=== PATIENT | female | born 1955 | race African-American/Black ===

== ENCOUNTER 2025-08-25 16:39 | Inpatient (IN) | payer OTHER, MEDICARE ==
[~2025-08-25] VITALS: Ht 170.2 cm; Wt 99.8 kg
[2025-08-25] MEDS: IV NS 0.9% 1,000 ML BAG IV ONE (17:12)
[2025-08-25 17:17] LABS: PLATELET COUNT (AUTO) 247 K/uL (150-450); RED BLOOD CELL COUNT(AUTO) 5.28 MIL/uL (4.0-5.2); RED CELL DISTRIBUTION WIDTH 14.6 % (11.5-15.0); WHITE BLOOD COUNT (AUTO) 8.5 K/uL (4.3-11.0)
[2025-08-25 17:24] LABS: CALCIUM, SERUM 9.2 mg/dL (8.5-10.1); CREATININE 1.0 mg/dL (0.6-1.3); SODIUM SERUM 135 mmol/L (136-145); UREA NITROGEN, BLOOD 9 mg/dL (7-18)
[2025-08-25 17:37] LABS: ASPARTATE AMINOTRANSFERASE 24 U/L (15-37); NT-PRO BNP 493 pg/mL (0-125); TOTAL PROTEIN, SERUM 8.2 g/dL (6.4-8.2)
[2025-08-25] MEDS ORDERED: ASPIRIN 325 MG TABLET ONE (17:54)
[2025-08-25] MEDS ORDERED: IOHEXOL-350 100 ML VIAL IV ONE (17:57)
[2025-08-25] MEDS ORDERED: IV NS 0.9% 500 ML IV ONE (17:58)
[2025-08-25] MEDS: ASPIRIN 325 MG TABLET PO ONE (18:00)
[2025-08-25] MEDS ORDERED: APIX5TAB PO (19:04)
[2025-08-25 20:11] LABS: INR 1.14 (0.91-1.10)
[2025-08-25] MEDS ORDERED: HEPARIN INFUSION/D5W 500 ML IV ONE (20:30)
[2025-08-25] MEDS: HEPARIN SODIUM, PORCINE 5000 UNITS/1 ML VIAL IV ONE (20:53)
[2025-08-25] MEDS ORDERED: ONDANSETRON HCL/PF 4 MG/2 ML VIAL IVP PRN (21:00)
[2025-08-25] MEDS ORDERED: MAGNESIUM HYDROXIDE 30 ML UDC PO PRN (21:00)
[2025-08-25] MEDS ORDERED: ACETAMINOPHEN 325 MG TABLET PO PRN (21:00)
[2025-08-25] MEDS ORDERED: MAG HYDROX/AL HYDROX/SIMETH 30 ML UDC PO PRN (21:00)
[2025-08-25] MEDS: HEPARIN INFUSION/D5W 500 ML IV PRN (21:10)
[2025-08-25 21:30] VITALS: BP 127/88; TEMP 97.9; O2SAT 95
[2025-08-26] VITALS (18 sets, daily range): BP systolic 87–121; BP diastolic 48–98; TEMP 97.7–97.9; O2SAT 94–99
[2025-08-26] MEDS: APIXABAN 5 MG TABLET PO SCH (01:06)
[2025-08-26] MEDS: PANTOPRAZOLE 40 MG TABLET.DR PO SCH (06:50)
[2025-08-26 06:56] LABS: PLATELET COUNT (AUTO) 202 K/uL (150-450); RED BLOOD CELL COUNT(AUTO) 4.51 MIL/uL (4.0-5.2); RED CELL DISTRIBUTION WIDTH 14.5 % (11.5-15.0); WHITE BLOOD COUNT (AUTO) 5.4 K/uL (4.3-11.0)
[2025-08-26 06:57] LABS: INR 1.22 (0.91-1.10)
[2025-08-26 06:58] LABS: ASPARTATE AMINOTRANSFERASE 21.0 U/L (15-37); CALCIUM, SERUM 8.4 mg/dL (8.5-10.1); CREATININE 0.8 mg/dL (0.6-1.3); PHOSPHORUS 3.4 mg/dL (2.5-4.9); SODIUM SERUM 139.0 mmol/L (136-145); TOTAL PROTEIN, SERUM 6.3 g/dL (6.4-8.2); UREA NITROGEN, BLOOD 10.0 mg/dL (7-18)
[2025-08-26 07:28] LABS: LDL 130.0 mg/dL (0-99)
[2025-08-26] MEDS: ENOXAPARIN SODIUM 100 MG/ML DISP.SYRIN SQ SCH (10:34)
[2025-08-30] MEDS ORDERED: APIXABAN 5 MG TABLET PO SCH (21:00)
== END 2025-08-26 18:00 | disposition short-term general hospital (02) | DRG 175 ==
LOC: ER 16:41 → TELE 19:33 → ICU 08-26 10:25
PROVIDERS: ADMIT Nurse Practitioner Family; ATTEND Internal Medicine
DX: I26.99 Other pulmonary embolism without acute cor pulmonale (principal); I21.A1 Myocardial infarction type 2; J96.01 Acute respiratory failure with hypoxia; E44.1 Mild protein-calorie malnutrition; I82.432 Acute embolism and thrombosis of left popliteal vein; Z79.01 Long term (current) use of anticoagulants; E66.9 Obesity, unspecified; R55 Syncope and collapse; E88.09 Other disorders of plasma-protein metabolism, not elsewhere classified; Z88.2 Allergy status to sulfonamides; R73.9 Hyperglycemia, unspecified; K80.20 Calculus of gallbladder without cholecystitis without obstruction; Z68.33 Body mass index [BMI] 33.0-33.9, adult
CPT/HCPCS: 36415; 71045-TC; 80048-TC; 80061-TC; 80076-TC; 83735-TC; 83880; 84100-TC; 84484-TC; 85025-TC; 85610-TC; 85730-TC; 86850-TC; 93307-TC; 93880-TC; 93970-TC; G0378; J1644; J1650; J7030; J7040; Q9967